=== PATIENT | female | born 1995 | race Caucasian/White ===

== ENCOUNTER 2024-05-22 15:38 | Emergency (ER) | payer BC, SELFPAY ==
--- NOTE | ~2024-05-22 | XR_ITS ---
EXAMINATION: XR chest 2V Exam Date/Time: 05/22/2024 18:39 CDT HISTORY: palpitations Comparison: None. RESULT: Lines, tubes, and devices: None. Lungs and pleura: Clear. Cardiomediastinal silhouette: Normal. Other: No acute osseous or upper abdominal finding. IMPRESSION: No acute cardiopulmonary process. Reviewed, dictated and finalized at location K.
[2024-05-22 16:07] VITALS: BP 125/80; PULSE 102; RESP 18; TEMP 37.1; O2SAT 100
--- NOTE | 2024-05-22 16:11 | ECG_ITS ---
Test Date: 2024-05-22 16:16:46 Measurements Intervals [place] Rate: 114 P: 73 TN: 134 QRS: 74 QRSD: 75 T: 20 QT: 313 QTc: 431 Interpretive Statements SINUS TACHYCARDIA NONSPECIFIC T-WAVE ABNORMALITY ABNORMA ECG No previous ECG available for comparison Electronically Signed On 05-23-2024 13:47:14 CDT by Marco Marcelino M.D.
--- NOTE | 2024-05-22 18:27 | ED.GENADULT ---
HPI - General Adult General Chief complaint: Unspecified Stated complaint: palpitations Time Seen by Provider: 05/22/24 18:27 Focused HPI: This is a 28 year old female that presents to the ER for tachycardia. Reports her heart rate spikes when she stands up. Her heart rate has been up to the 170s. Reports feelings of heart racing. Reports this has been happening for years. Denies chest pain, shortness of breath. GENERAL: Well-appearing, well-nourished, and in no acute distress. HEAD: Normocephalic, atraumatic. CHEST: Clear to auscultation. ?No respiratory distress. HEART: Regular rate and rhythm.? NEURO: ?Alert and oriented x3. Patient screened in triage and initial orders placed.? ?Additional care and disposition to be based upon?diagnostic testing and treatment. Course Vital Signs Vital signs: Vital Signs Temperature 98.7 F 05/22/24 16:07 Pulse Rate 102 H 05/22/24 16:07 Respiratory Rate 18 05/22/24 16:07 Blood Pressure 125/80 05/22/24 16:07 Pulse Oximetry 100 05/22/24 16:07 Temperature 98.7 F 05/22/24 16:07 Pulse Rate 102 H 05/22/24 16:07 Respiratory Rate 18 05/22/24 16:07 Blood Pressure 125/80 05/22/24 16:07 Pulse Oximetry 100 05/22/24 16:07 Medical Decision Making Vital Signs Vital Signs: Vital Signs Temperature 98.7 F 05/22/24 16:07 Pulse Rate 102 H 05/22/24 16:07 Respiratory Rate 18 05/22/24 16:07 Blood Pressure 125/80 05/22/24 16:07 Pulse Oximetry 100 05/22/24 16:07 Temperature 98.7 F 05/22/24 16:07 Pulse Rate 102 H 05/22/24 16:07 Respiratory Rate 18 05/22/24 16:07 Blood Pressure 125/80 05/22/24 16:07 Pulse Oximetry 100 05/22/24 16:07 Discharge Plan Discharge Follow-up/Referrals: PHYSICIAN NOT ON STAFF,NONSTAFF [Primary Care Provider] -
[2024-05-22 20:41] VITALS: BP 127/82; PULSE 87; RESP 14; TEMP 36.6; O2SAT 100
[2024-05-22 22:34] VITALS: BP 131/98; PULSE 85; RESP 16; O2SAT 100
--- NOTE | 2024-05-22 23:07 | ED.GENADULT ---
HPI - General Adult General Chief complaint: Unspecified Stated complaint: palpitations Time Seen by Provider: 05/22/24 18:27 History of Present Illness HPI narrative: 28-year-old female with history of anxiety depression presents to emergency department for fast heart rate. Patient states for a couple of years as she has been feeling fatigued and has been having brain fog. She states she has been working with her doctor in the been unable to to figure out what is the source of her symptoms. She states a couple days ago she felt dizzy when she stood up so she began wearing a smart watch after considering [place] Cid as the source of her symptoms. She then realized that her heart rate has been getting as high as 120-130 when she stands up. She contacted her PCP and was advised to come to the ED for further evaluation. She denies chest pain, N/V/D, fever, cough or congestion, mom doses, lower extremity edema, history of VTE, recent surgeries or hospitalizations. She is on Depo for control. She is also reporting some shortness of breath. Related Data Allergies Allergy/AdvReac Type Severity Reaction Status Date / Time No Known Allergies Allergy Verified 05/22/24 22:34 Review of Systems Review of Systems: All systems reviewed & are unremarkable except as noted in HPI and below Exam Narrative: GENERAL: Well-appearing, well-nourished, and in no acute distress. HEAD: Normocephalic, atraumatic. EYES: PERRLA and EOMI. ENT: Nares clear, no rhinorrhea or epistaxis. Mucous membranes moist. NECK: Supple. CHEST: Clear to auscultation. No respiratory distress. HEART: Regular rate and rhythm. No murmur heard. Normal peripheral pulses. ABDOMEN: Soft, nontender, nondistended, normal active bowel sounds. EXTREMITIES: Normal range of motion. No edema. Negative Homans bilaterally SKIN: Warm, dry, no rash. NEURO: No focal deficits. Alert and oriented x3 Course Vital Signs Vital signs: Vital Signs Temperature 98.7 F 05/22/24 16:07 Pulse Rate 102 H 05/22/24 16:07 Respiratory Rate 18 05/22/24 16:07 Blood Pressure 125/80 05/22/24 16:07 Pulse Oximetry 100 05/22/24 16:07 Temperature 97.8 F 05/22/24 20:41 Pulse Rate 107 H 05/23/24 02:20 Respiratory Rate 14 05/23/24 02:18 Blood Pressure 135/85 05/23/24 02:20 Pulse Oximetry 100 05/23/24 02:18 Medical Decision Making MDM Narrative Medical decision making narrative: 28-year-old female presents to the emergency department for intermittent tachycardia that she has noticed for the past couple of days after being fatigued for the past couple of years. Triage vitals with mild tachycardia 102. Exam is reassuring and significant for the above. EKG shows sinus tachycardia rate of 114 and nonspecific T-wave abnormality, normal FL interval, normal QRS duration, normal QTC, no ischemic changes. CBC with mild leukocytosis of 10.7, no bandemia. Chemistries without electrolyte derangements. Mag is normal. TSH normal at 2.340. D-dimer less than 0.27, wells score is low risk. Chest x-ray shows no acute cardiopulmonary abnormality. is negative. Patient received a L of fluids. Her orthostatic vital signs were positive with her heart rate increasing from 92 when supine to 130 when standing. Patient was then given another L of fluids and orthostatic vital signs were obtained which showed improvement. Heart rate is not increasing 17 beats per minute when going from a supine to standing position. After shared decision making, the patient and myself feel safe for discharge home with Cardiology follow-up. I discussed increase fluid intake and strict ED return precautions. She is agreeable with the plan verbalized understanding. Discharged in stable condition. Vital Signs Vital Signs: Vital Signs Temperature 98.7 F 05/22/24 16:07 Pulse Rate 102 H 05/22/24 16:07 Respiratory Rate 18 05/22/24 16:07 Blood Pressure 125/80 05/22/24 16:07 Pulse O
[2024-05-22] MEDS: SODIUM CHLORIDE 0.9% IV 1,000 ML 999 ML IV CONT (23:13)
[2024-05-22 23:21] LABS: Basophils Percent Auto 0.4 % (0.2-1.2); Eosinophils Percent Auto 0.3 % (0-4.4); Hematocrit 41.9 % (37.0-47.0); Hemoglobin 14.6 g/dL (12.0-15.0); Immature Granulocyte Absolute 0.03 K/mm3 (0.00-0.031); Immature Granulocyte Percent A 0.3 % (0-0.5); Lymphocytes Absolute Auto 4.07 K/mm3 (0.9-3.2); Mean Corpuscular HGB Conc 34.8 g/dl (32-36); Mean Corpuscular Hemoglobin 32.9 pg (26-34); Mean Corpuscular Volume 94.4 fl (80-100); Mean Platelet Volume 9.2 fl (7.4-10.4); Monocytes Absolute Auto 0.8 K/mm3 (0.1-0.6); Monocytes Percent Auto 7.2 % (2.6-8.5); Neutrophils Absolute Auto 5.8 K/mm3 (1.3-6.7); Neutrophils Percent Auto 53.8 % (45.5-73.1); Platelet Count Result 259 k/mm3 (150-375); Red Blood Count 4.44 M/mm3 (4.2-5.4); Red Cell Distribution Width 10.9 % (11.5-14.5); White Blood Count 10.7 K/mm3 (4.5-10.0)
[2024-05-22 23:32] LABS: Alanine Aminotransferase 15 U/L (6-35); Alkaline Phosphatase 67 U/L (38-126); Anion Gap 12 mmol/L (4-12); Aspartate Amino Transferase 26 U/L (14-36); Bilirubin,Total 0.8 mg/dL (0.2-1.3); Blood Urea Nitrogen 8 mg/dL (7-17); Calcium 9.4 mg/dL (8.4-10.2); Carbon Dioxide 23 mmol/L (22-30); Chloride 103 mmol/L (98-107); Estimated CRCL calculation 75 ml/min; Estimated Glomerular Filt Rate > 60; Glucose 88 mg/dL (65-110); Magnesium 1.9 mg/dL (1.6-2.3); Potassium 3.5 mmol/L (3.4-5.0); Sodium 138 mmol/L (137-145)
[2024-05-22 23:43] LABS: D Dimer < 0.27 ug/mL (<0.48)
[2024-05-23 00:51] LABS: Partial Thromboplastin Time 32.8 Seconds (22.3-36.8)
[2024-05-23 01:19] VITALS: BP 111/73; PULSE 92
[2024-05-23 01:20] VITALS: BP 135/89; PULSE 122
[2024-05-23 01:21] VITALS: BP 146/91; PULSE 130
[2024-05-23] MEDS: SODIUM CHLORIDE 0.9% IV 1,000 ML 999 ML IV CONT (01:36)
[2024-05-23 02:18] VITALS: BP 116/77; BP 130/74; PULSE 90; RESP 14; O2SAT 100
[2024-05-23 02:19] VITALS: BP 136/88; PULSE 104
[2024-05-23 02:20] VITALS: BP 135/85; PULSE 107
[2024-05-23 03:29] LABS: BEDSIDEPREGUCG Negative (Negative)
== END 2024-05-23 03:29 | disposition home or self-care (01) ==
PROVIDERS: Physician Assistant; Emergency Provider Physician Assistant
DX: R00.0 Tachycardia, unspecified (principal); R42 Dizziness and giddiness
CPT/HCPCS: 36415; 71046; 80053; 81025; 83735; 84443; 85025; 85380; 85610; 85730; 93005; 96360; 96361; 99284; J7030